=== PATIENT | male | born 1980 | race African-American/Black ===

== ENCOUNTER 2017-10-13 23:52 | Emergency (ER) | payer SELFPAY ==
[~2017-10-13] VITALS: Ht 185.4 cm; Wt 108.1 kg
[2017-10-14 00:28] VITALS: BP 150/90
== END 2017-10-14 00:59 | disposition home or self-care (01) ==
LOC: ED 23:59
DX: F41.1 Generalized anxiety disorder (principal)
CPT/HCPCS: 99284

== ENCOUNTER 2017-11-26 11:34 | Emergency (ER) | payer SELFPAY ==
[~2017-11-26] VITALS: Ht 185.4 cm; Wt 105.0 kg
[~2017-11-26 11:34] MED LIST: HYDR50TA13 PO
[2017-11-26 13:15] LABS: BASOPHILS # (AUTO) 0.07 x10^3/uL (0-0.1); BASOPHILS % (AUTO) 1 % (0-1); EOSINOPHILS # (AUTO) 0.07 x10^3/uL (0-0.4); EOSINOPHILS % (AUTO) 1 % (1-7); LYMPHOCYTES % (AUTO) 49 % (22-44); MD NO; MEAN CORPUSCULAR HEMOGLOBIN 28.1 pg (27.5-34.5); MEAN CORPUSCULAR HGB CONC 33.1 g/dL (33.2-36.2); MEAN CORPUSCULAR VOLUME 85.1 fL (81-97); MEAN PLATELET VOLUME 7.5 fL (7.4-10.4); MONOCYTES # (AUTO) 0.33 x10^3/uL (0.2-0.8); MONOCYTES % (AUTO) 6 % (2-9); NEUTROPHILS # (AUTO) 2.35 x10^3/uL (1.8-6.8); NEUTROPHILS % (AUTO) 43 % (42-75); PLATELET COUNT 282 x10^3/uL (130-400); RED BLOOD COUNT 5.41 x10^6/uL (4.38-5.82); RED CELL DISTRIBUTION WIDTH 15.9 % (9.4-14.8)
[2017-11-26 13:25] LABS: ALANINE AMINOTRANSFERASE 31 U/L (12-78); ALBUMIN 4.3 g/dL (3.4-5.0); ANION GAP 7 mmol/L (5-15); CALCIUM 9.3 mg/dL (8.5-10.1); CHLORIDE 108 mmol/L (98-107); CREATININE 1.06 mg/dL (0.7-1.3)
[2017-11-26 13:30] LABS: ALKALINE PHOSPHATASE 55 U/L (45-117); BILIRUBIN,TOTAL 0.5 mg/dL (0.2-1.0); TOTAL PROTEIN 8.8 g/dL (6.4-8.2); TROPONIN I < 0.015 ng/mL (0.000-0.045)
[2017-11-26] MEDS ORDERED: PROP40TA PO (15:31)
[2017-11-26 15:35] VITALS: BP 126/82
== END 2017-11-26 16:00 | disposition home or self-care (01) ==
LOC: ED 15:54
DX: R07.89 Other chest pain (principal)
CPT/HCPCS: 36415; 71046; 80053; 84484; 85025; 93005; 99285

== ENCOUNTER 2018-02-12 16:15 | Emergency (ER) | payer SELFPAY ==
[~2018-02-12] VITALS: Ht 185.4 cm; Wt 102.6 kg
[~2018-02-12 16:15] MED LIST changes: +PROP40TA PO
[2018-02-12] MEDS ORDERED: ASPIRIN 81 MG TABLET CHEW ONE (16:52)
[2018-02-12] MEDS ORDERED: ASPIRIN 81 MG TABLET CHEW PO ONE (17:00)
[2018-02-12] MEDS ORDERED: BUSP7.5T3 PO (17:01)
[2018-02-12] MEDS ORDERED: PROP40TA PO (17:01)
[2018-02-12 17:20] LABS: BASOPHILS # (AUTO) 0.06 x10^3/uL (0-0.1); BASOPHILS % (AUTO) 1 % (0-1); EOSINOPHILS # (AUTO) 0.09 x10^3/uL (0-0.4); EOSINOPHILS % (AUTO) 2 % (1-7); LYMPHOCYTES # (AUTO) 3.05 x10^3/uL (1-3.4); LYMPHOCYTES % (AUTO) 53 % (22-44); MD NO; MEAN CORPUSCULAR HEMOGLOBIN 28.9 pg (27.5-34.5); MEAN CORPUSCULAR HGB CONC 33.2 g/dL (33.2-36.2); MEAN CORPUSCULAR VOLUME 86.9 fL (81-97); MEAN PLATELET VOLUME 7.9 fL (7.4-10.4); MONOCYTES # (AUTO) 0.46 x10^3/uL (0.2-0.8); MONOCYTES % (AUTO) 8 % (2-9); NEUTROPHILS # (AUTO) 2.11 x10^3/uL (1.8-6.8); NEUTROPHILS % (AUTO) 37 % (42-75); PLATELET COUNT 290 x10^3/uL (130-400); RED BLOOD COUNT 4.94 x10^6/uL (4.38-5.82); RED CELL DISTRIBUTION WIDTH 15.7 % (9.4-14.8)
[2018-02-12 17:30] LABS: ALANINE AMINOTRANSFERASE 31 U/L (12-78); ALBUMIN 4.3 g/dL (3.4-5.0); ANION GAP 5 mmol/L (5-15); CALCIUM 9.3 mg/dL (8.5-10.1); CHLORIDE 107 mmol/L (98-107); CREATININE 1.09 mg/dL (0.7-1.3)
[2018-02-12 17:34] LABS: ALKALINE PHOSPHATASE 45 U/L (45-117); BILIRUBIN,TOTAL 0.6 mg/dL (0.2-1.0); TOTAL PROTEIN 8.1 g/dL (6.4-8.2); TROPONIN I < 0.015 ng/mL (0.000-0.045)
[2018-02-12 17:59] VITALS: BP 128/90
== END 2018-02-12 18:02 | disposition home or self-care (01) ==
LOC: ED 17:50
DX: F41.1 Generalized anxiety disorder (principal); R07.89 Other chest pain
CPT/HCPCS: 36415; 71045; 80053; 84484; 85025; 93005; 99285

== ENCOUNTER 2018-03-16 20:20 | Emergency (ER) | payer MEDICAID, OTHER ==
[~2018-03-16] VITALS: Ht 182.9 cm; Wt 102.0 kg
[~2018-03-16 20:20] MED LIST changes: +BUSP7.5T3 PO
[2018-03-16 20:25] VITALS: BP 122/85
[2018-03-16 20:47] LABS: BASOPHILS # (AUTO) 0.09 x10^3/uL (0-0.1); BASOPHILS % (AUTO) 1 % (0-1); EOSINOPHILS % (AUTO) 1 % (1-7); LYMPHOCYTES # (AUTO) 3.48 x10^3/uL (1-3.4); LYMPHOCYTES % (AUTO) 49 % (22-44); MD NO; MEAN CORPUSCULAR HEMOGLOBIN 29.4 pg (27.5-34.5); MEAN CORPUSCULAR HGB CONC 33.7 g/dL (33.2-36.2); MEAN CORPUSCULAR VOLUME 87.3 fL (81-97); MEAN PLATELET VOLUME 8.1 fL (7.4-10.4); MONOCYTES # (AUTO) 0.45 x10^3/uL (0.2-0.8); MONOCYTES % (AUTO) 6 % (2-9); NEUTROPHILS # (AUTO) 2.99 x10^3/uL (1.8-6.8); NEUTROPHILS % (AUTO) 42 % (42-75); PLATELET COUNT 274 x10^3/uL (130-400); RED BLOOD COUNT 4.88 x10^6/uL (4.38-5.82); RED CELL DISTRIBUTION WIDTH 15.5 % (9.4-14.8)
[2018-03-16 20:55] LABS: ALANINE AMINOTRANSFERASE 38 U/L (12-78); ALBUMIN 4.3 g/dL (3.4-5.0); ANION GAP 6 mmol/L (5-15); CALCIUM 9.3 mg/dL (8.5-10.1); CHLORIDE 108 mmol/L (98-107); CREATININE 1.09 mg/dL (0.7-1.3)
[2018-03-16 20:57] LABS: ALKALINE PHOSPHATASE 58 U/L (45-117); BILIRUBIN,TOTAL 0.5 mg/dL (0.2-1.0); TOTAL PROTEIN 8.1 g/dL (6.4-8.2)
== END 2018-03-16 23:57 | disposition home or self-care (01) ==
LOC: ED 23:00
DX: R10.12 Left upper quadrant pain (principal); F41.1 Generalized anxiety disorder; E78.5 Hyperlipidemia, unspecified
CPT/HCPCS: 36415; 76700; 80053; 83690; 85025; 99285

== ENCOUNTER 2019-07-11 00:20 | Emergency (ER) ==
[~2019-07-11] VITALS: Ht 185.4 cm; Wt 129.4 kg
[~2019-07-11 00:20] MED LIST changes: +ATOR-2 PO; +SERT50TA PO
[2019-07-11 00:23] VITALS: BP 137/82
--- NOTE | 2019-07-11 00:31 | NUR ---
ERP AT PT'S BEDSIDE FOR EVAL, AWAITING ORDERS
[2019-07-11] MEDS ORDERED: IBUPROFEN 600 MG TABLET ONE (00:44)
[2019-07-11] MEDS ORDERED: DEXAMETHASONE 4 MG/ML, 5ML ONE (00:44)
[2019-07-11] MEDS ORDERED: IBUPROFEN 600 MG TABLET PO ONE (01:00)
[2019-07-11] MEDS ORDERED: DEXAMETHASONE 4 MG/ML, 1ML PO ONE (01:00)
== END 2019-07-11 01:10 | disposition home or self-care (01) ==
LOC: ED 01:08
DX: J02.8 Acute pharyngitis due to other specified organisms (principal); B97.89 Other viral agents as the cause of diseases classified elsewhere
CPT/HCPCS: 87081; 87147; 87880; 99283; J1100

== ENCOUNTER 2020-04-24 15:35 | Emergency (ER) | payer MEDICAID ==
[~2020-04-24] VITALS: Ht 185.4 cm; Wt 122.2 kg
[~2020-04-24 15:35] MED LIST changes: -BUSP7.5T3 PO; +BUSP7.5T5 PO; -HYDR50TA13 PO; +HYDR50TA99 PO
[2020-04-24] MEDS ORDERED: SODIUM CHLORIDE FLUSH 10ML SYR IVF ONE (16:00)
[2020-04-24] MEDS ORDERED: SODIUM CHLORIDE 0.9% 1,000ML IVBOLUS ONE (16:00)
[2020-04-24] MEDS ORDERED: METF500T17 PO (16:19)
[2020-04-24] MEDS ORDERED: ATOR40TA78 PO (16:19)
[2020-04-24 16:25] LABS: BASOPHILS # (AUTO) 0.09 x10^3/uL (0-0.1); BASOPHILS % (AUTO) 1 % (0-1); EOSINOPHILS # (AUTO) 0.07 x10^3/uL (0-0.4); EOSINOPHILS % (AUTO) 1 % (1-7); LYMPHOCYTES # (AUTO) 3.44 x10^3/uL (1-3.4); LYMPHOCYTES % (AUTO) 43 % (22-44); MD NO; MEAN CORPUSCULAR HEMOGLOBIN 27.4 pg (27.5-34.5); MEAN CORPUSCULAR HGB CONC 33.1 g/dL (33.2-36.2); MEAN PLATELET VOLUME 9.1 fL (7.4-10.4); MONOCYTES # (AUTO) 0.42 x10^3/uL (0.2-0.8); MONOCYTES % (AUTO) 5 % (2-9); NEUTROPHILS # (AUTO) 4.08 x10^3/uL (1.8-6.8); NEUTROPHILS % (AUTO) 50 % (42-75); PLATELET COUNT 288 x10^3/uL (130-400); RED CELL DISTRIBUTION WIDTH 15.3 % (9.4-14.8)
[2020-04-24 16:31] LABS: ALBUMIN 3.9 g/dL (3.4-5.0); ANION GAP 14 mmol/L (5-15); CHLORIDE 97 mmol/L (98-107)
[2020-04-24 16:34] LABS: ALKALINE PHOSPHATASE 229 U/L (45-117); BILIRUBIN,TOTAL 0.6 mg/dL (0.2-1.0); CREATININE 1.44 mg/dL (0.7-1.3); TOTAL PROTEIN 9.5 g/dL (6.4-8.2)
--- NOTE | 2020-04-24 17:11 | NUR ---
URINE COLLECTED AND SENT TO LAB.
[2020-04-24 17:27] LABS: ACETONE, SERUM Large (80mg/dL) (Negative)
[2020-04-24 17:36] LABS: MICROSCOPIC AUTO
[2020-04-24] MEDS ORDERED: INSULIN SINGLE DOSE, ER ONE (17:49)
--- NOTE | 2020-04-24 17:56 | NUR ---
REPORT RECEIVED LESLY GARCIA.
[2020-04-24] MEDS ORDERED: INSULIN REGULAR 100 UNITS/ML, 3ML VIAL SQ-INSULIN ONE (18:00)
[2020-04-24 18:06] VITALS: BP 112/70
[2020-04-24 18:09] LABS: ALANINE AMINOTRANSFERASE 57 U/L (12-78)
--- NOTE | 2020-04-24 18:26 | NUR ---
BGL 436 AFTER FLUIDS. TOLD [facility], PLAN FOR DC HOME.
== END 2020-04-24 18:51 | disposition home or self-care (01) ==
LOC: ED 16:01
DX: E11.65 Type 2 diabetes mellitus with hyperglycemia (principal); E78.5 Hyperlipidemia, unspecified; R00.0 Tachycardia, unspecified; Z87.891 Personal history of nicotine dependence
CPT/HCPCS: 80053; 81001; 82010; 82800; 82962; 85025; 96360; 96361; 99283; J1815; J7030

== ENCOUNTER 2020-05-23 06:53 | Emergency (ER) | payer MEDICAID ==
[~2020-05-23] VITALS: Ht 185.4 cm; Wt 120.6 kg
[~2020-05-23 06:53] MED LIST changes: +ATOR40TA78 PO; +METF500T17 PO
--- NOTE | 2020-05-23 07:14 | NUR ---
INITIAL PT CONTACT. 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 PT STATES HE "SMOKED WEED FOR THE FIRST TIME IN A LONG TIME LAST NIGHT AND WHEN I GOT HOME MY HEART STARTED TO RACE". PT STATES THIS HAS HAPPENED BEFORE AND STATED "IT WAS ANXIETY". PT DENIES CP OR SOB. PT UPRIGHT ON GURNEY WITH CALL LIGHT WITHIN REACH AND CONTINUOUS RUG TOUCH UP PAINTER IN PLACE. PT DENIES ANY NEEDS AT THIS TIME.
[2020-05-23] MEDS ORDERED: LORazepam 2 MG/ML, 1ML ONE (07:19)
[2020-05-23] MEDS ORDERED: LORazepam 1MG TABLET ONE (07:26)
[2020-05-23] MEDS ORDERED: LORazepam 1MG TABLET PO ONE (07:30)
[2020-05-23] MEDS ORDERED: SODIUM CHLORIDE FLUSH 10ML SYR IVF ONE (07:30)
[2020-05-23] MEDS ORDERED: LORazepam 2 MG/ML, 1ML IVPush ONE (07:30)
[2020-05-23 07:37] LABS: BASOPHILS % (AUTO) 1 % (0-1); EOSINOPHILS % (AUTO) 1 % (1-7); LYMPHOCYTES % (AUTO) 49 % (22-44); MEAN CORPUSCULAR HEMOGLOBIN 27.3 pg (27.5-34.5); MEAN CORPUSCULAR HGB CONC 31.8 g/dL (33.2-36.2); MEAN PLATELET VOLUME 7.6 fL (7.4-10.4); MONOCYTES % (AUTO) 8 % (2-9); NEUTROPHILS % (AUTO) 43 % (42-75); PLATELET COUNT 249 x10^3/uL (130-400); RED BLOOD COUNT 4.78 x10^6/uL (4.38-5.82); RED CELL DISTRIBUTION WIDTH 18.5 % (9.4-14.8)
[2020-05-23 07:49] LABS: ALANINE AMINOTRANSFERASE 41 U/L (12-78); ANION GAP 6 mmol/L (5-15); CALCIUM 9.4 mg/dL (8.5-10.1); CHLORIDE 103 mmol/L (98-107); CREATININE 1.25 mg/dL (0.7-1.3)
[2020-05-23 07:53] LABS: ALKALINE PHOSPHATASE 127 U/L (45-117); BILIRUBIN,TOTAL 0.4 mg/dL (0.2-1.0); TROPONIN I < 0.015 ng/mL (0.000-0.045)
[2020-05-23 07:58] LABS: MD SCAN
--- NOTE | 2020-05-23 08:02 | NUR ---
PT SITTING UPRIGHT ON GURNEY AND ERP AT BEDSIDE DISCUSSING DC. PT STATES "I FEEL SO MUCH BETTER". PT DENIES ANY NEEDS AT THIS TIME. CALL LIGHT WITHIN REACH, AWAITING DC.
[2020-05-23 08:20] VITALS: BP 116/75
--- NOTE | 2020-05-23 08:20 | NUR ---
Patient given discharge instructions and they have confirmed that they understand the instructions. Patient ambulatory with steady gait.
== END 2020-05-23 08:22 | disposition home or self-care (01) ==
LOC: ED 07:39
DX: F41.1 Generalized anxiety disorder (principal); R07.89 Other chest pain; R00.0 Tachycardia, unspecified; R06.4 Hyperventilation; R00.2 Palpitations; I45.10 Unspecified right bundle-branch block; E78.5 Hyperlipidemia, unspecified; E11.9 Type 2 diabetes mellitus without complications
CPT/HCPCS: 36415; 71045; 80053; 83880; 84484; 85025; 93005; 99285